=== PATIENT | female | born 1940 | race Hispanic/Latino ===

== ENCOUNTER 2018-07-11 09:14 | Outpatient (CLI) | payer MEDICARE, OTHER | END 2018-07-11 09:15 | disposition home or self-care (01) | LOC: RAD 09:14 ==

== ENCOUNTER 2018-09-09 08:36 | Outpatient (CLI) | payer MEDICARE, OTHER | END 2018-09-09 08:37 | disposition home or self-care (01) | LOC: RAD 08:36 | DX: E10.49 Type 1 diabetes mellitus with other diabetic neurological complication (principal); D36.10 Benign neoplasm of peripheral nerves and autonomic nervous system, unspecified ==